=== PATIENT | female | born 1985 | race Caucasian/White ===

== ENCOUNTER → 2020-10-25 13:49 | Outpatient (CLI) | payer OTHER, SELFPAY ==
--- NOTE | ~2020-10-25 | MM_ITS ---
EXAMINATION: MM screening betty BI w krystin HISTORY: Screening TECHNIQUE: Craniocaudal and mediolateral oblique 3-D tomosynthesis images were obtained and synthetic 2-D images were generated. CAD analysis was submitted and interpreted. COMPARISON: No prior mammogram is available for comparison at this institution. BREAST PARENCHYMAL COMPOSITION: The breasts are heterogeneously dense, which may obscure small masses . FINDINGS: There is no evidence of suspicious mass, calcification, or architectural distortion to sugg est malignancy in either breast. There has been no suspicious interval change. IMPRESSION: 1. No mammographic evidence of malignancy. 2. Recommend routine screening mammography in one year. BI-RADS Category 1: Negative Reviewed, dictated and finalized at location A.
== END ==
PROVIDERS: Visit Provider Surgery Plastic and Reconstructive Surgery
DX: Z12.31 Encounter for screening mammogram for malignant neoplasm of breast (principal)
CPT/HCPCS: 77063; 77067

== ENCOUNTER 2021-01-11 16:10 | Emergency (ER) | payer OTHER, SELFPAY ==
[2021-01-11 16:19] VITALS: BP 165/94; PULSE 70; TEMP 37.2; O2SAT 99
[2021-01-11] MEDS: IBUPROFEN 600 MG TABLET PO (19:17)
[2021-01-11 19:19] VITALS: BP 180/85; PULSE 63; RESP 18; TEMP 37.2; O2SAT 97
--- NOTE | 2021-01-11 19:21 | ED.WOUNDLAC ---
HPI - Wound/Laceration General Chief Complaint: Wound/Laceration <Li Juarez PA-C - Last Filed: 01/11/21 19:37> Stated Complaint: hit by softball line drive <DAVI Sanchez Last Filed: 01/11/21 19:37> Time Seen by Provider: 01/11/21 18:52 <DAVI Sanchez Last Filed: 01/11/21 19:37> Source: patient <DAVI Sanchez Last Filed: 01/11/21 19:37> Mode of arrival: ambulatory <DAVI Sanchez Last Filed: 01/11/21 19:37> Limitations: no limitations <DAVI Sanchez Last Filed: 01/11/21 19:37> History of Present Illness HPI narrative: This is a 35 year old female that presents to the ER for a head injury sustained just prior to arrival. 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 Reports she was hit in the face with a line drive. Reports swelling and pain to the lower lip. Also reports injury to one of her teeth. Denies loss of consciousness, vision changes, vomiting, numbness, or weakness. <DAVI Sanchez Last Filed: 01/11/21 19:37> Related Data Allergies/Adverse Reactions: Allergies Allergy/AdvReac Type Severity Reaction Status Date / Time No Known Allergies Allergy Verified 01/11/21 16:38 <DAVI Sanchez Last Filed: 01/11/21 19:37> Review of Systems Review of Systems: CONSTITUTIONAL: Denies fever EYES: Denies visual changes GASTROINTESTINAL: Denies vomiting <DAVI Sanchez Last Filed: 01/11/21 19:37> All systems reviewed & are unremarkable except as noted in HPI and below <DAVI Sanchez Last Filed: 01/11/21 19:37> [facility] Past Medical History Medical History: Medical History (Updated 01/12/21 @ 00:00 by Background Daemon) No active medical problems <DAVI Sanchez Last Filed: 01/11/21 19:37> Surgical History Surgical History: Surgical History (Updated 01/08/20 @ 08:58 by Bhupendra Browne MD) History of delivery 2014 History of cosmetic plastic surgery 2016 Abdominoplast 2009- breast lift History of repair of ACL 2000 <Li Juarez PA-C - Last Filed: 01/11/21 19:37> Family History Family History: Family History Mother Hypertension <Li Juarez PA-C - Last Filed: 01/11/21 19:37> Social History Social History: Social History (Updated 01/08/20 @ 08:15 by Renae Villalobos [facility]) Smoking status: Never smoker Alcohol intake: current Substance use: never <Li Juarez PA-C - Last Filed: 01/11/21 19:37> Exam Narrative: GENERAL: Well-appearing, well-nourished, and in no acute distress. HEAD: Normocephalic. Bruising and swelling noted to the bottom lip. Superficial lacerations noted on the inside of the bottom lip. EYES: PERRLA and EOMI. ENT: Nares clear, no rhinorrhea or epistaxis. Mucous membranes moist. Oropharynx without tonsillar hypertrophy exudate or other lesions. Bilateral TMs pearly hagen non-bulging. Tooth number 25 has been pushed back, but is not loose NECK: Supple. No adenopathy or masses. CHEST: Clear to auscultation. No respiratory distress. No wheezes rales or rhonchi HEART: Regular rate and rhythm. No murmur heard. Normal peripheral pulses. EXTREMITIES: Normal range of motion. No edema. SKIN: Warm, dry, no rash. NEURO: No focal deficits. Alert and oriented x3. Cranial nerves II through XII grossly intact PSYCH: Normal mood and affect <Li Juarez PA-C - Last Filed: 01/11/21 19:37> Course Vital Signs Vital signs: Vital Signs Temperature 37.2 C 01/11/21 16:19 Pulse Rate 70 01/11/21 16:19 Blood Pressure 165/94 H 01/11/21 16:19 Pulse Oximetry 99 01/11/21 16:19 Temperature 37.2 C 01/11/21 19:19 Pulse Rate 63 01/11/21 19:19 Respiratory Rate 18 01/11/21 19:19 Blood Pressure 180/85 H 01/11/21 19:19 Pulse Oximetry 97 01/11/21 19:19 <Li Juarez PA-C - Last
--- NOTE | 2021-01-11 19:23 | PC.NURSE ---
Patient states she does not want the CT and request to speak with DAVID Jefferson. ERP notified.
== END 2021-01-11 19:37 | disposition home or self-care (01) ==
PROVIDERS: Emergency Provider Emergency Medicine
DX: S09.93XA Unspecified injury of face, initial encounter (principal); W21.07XA Struck by softball, initial encounter; Y93.64 Activity, baseball
CPT/HCPCS: 99283; A9270

== ENCOUNTER 2021-02-13 01:54 | Day surgery (SDC) | payer OTHER, SELFPAY ==
[2021-02-10 16:07] VITALS: BMI 27.6
--- NOTE | 2021-02-10 16:17 | PC.NURSE ---
Report to the Outpatient Waiting Room, entrance under the green pavilion located off [facility], at time 0600 on date 02/13/21. OR Time: 0730. - You and your visitor will be asked a series of questions to screen for COVID 19 for your protection. - A mask is required within the hospital. - Only one visitor is allowed at this time. Patient visitors will be guided where to wait when not with patient. Preoperative COVID Testing Requirements: No COVID Test needed if: (proof is required; if not received patient will have Rapid Test prior to entry) - Patient has received COVID Vaccine at least 14 days prior to procedure date or - Patient has positive COVID test result within last 90 days of surgery date. COVID Test needed if above criteria is not met If not COVID vaccinated a COVID test must be conducted within 72 hours of surgery and patient is asked to isolate self from time of testing until procedure. You will go to the [facility] for your COVID testing. The [facility] site is located at the corner of [address] [facility]. You will only be called if COVID results are positive and your surgeon may reschedule your elective surgery date. Patients may have clear liquids (water, carbonated beverages, clear teas, apple juice) until 3 hours prior to surgery with a maximum of 20 ounces. - No food from midnight until time of surgery - Infants may have breast milk until 4 hours before surgery, infant formula 6 hours prior to surgery. - Children will be allowed to drink immediately following surgery. If applicable, please bring a bottle or sippy cup to assist with drinking. Juice, water, soda, and popsicles are readily available. For infants on formula, please bring formula the day of surgery. Pacifiers are allowed. Take the following medications with a SIP of water the morning of surgery: N/A Medications to discontinue per physician: N/A Date to take last dose: N/A Please no make-up, nail estonian, hairspray, perfume, deodorant, or body powder the day of surgery. No jewelry (including any body piercings) or valuables the day of surgery, leave them at home. Please take a shower or bath the night before, or the morning of, surgery with an antibacterial soap. Wear comfortable, loose fitting clothing. Children are encouraged to wear pajamas. - Jewelry must be removed prior to entering the operating room. Rings and piercings that are not removed may be cut off. - The hospital will not accept responsibility for valuables. - Please leave all valuables, including medications, at home the day of surgery. If you are going home after surgery, a licensed driver license technician must drive you home. - NO public transportation without another adult. - We recommend that an adult stay with you for 24 hours following discharge. - We also recommend that you do not drive, make important decision, drink alcoholic beverages, or take any drugs that were not prescribed by your health care provider for at least 24 hours after your discharge time. For Pediatric surgeries, we recommend two adults accompany the child home (only one inside the building at this time). Follow any additional instructions given to you from your surgeon. Telephone instructions given to BRIONNA NUNN and asked if any additional questions and then verbalized understanding. Patient advised to call surgeon office or pre surgery nurse liaison [phone] if any additional questions.
[2021-02-13] VITALS (8 sets, daily range): BP systolic 139–162; BP diastolic 74–98; PULSE 53–75; RESP 10–20; TEMP 36.3–36.6; O2SAT 99–100
[2021-02-13 07:01] LABS: Urine Cotinine NEGATIVE
--- NOTE | 2021-02-13 07:02 | P.PNAN_ITS ---
Anes - Initial Pre Proc Eval Procedure: Operation Date: 02/13/21 07:30 Proposed Procedures p Bilateral Breast Reduction - Bhupendra Browne MD Date/Time: 02/13/21 07:02 Surgeon: Bhupendra Browne MD Pre Op Diagnosis: Macromastia Patient Data Age: 35 Gender: F Height: 1.57 m Weight: 68.4 kg Allergies Allergy/AdvReac Type Severity Reaction Status Date / Time No Known Allergies Allergy Verified 02/13/21 07:12 Home Medications Medication Instructions Recorded Confirmed Type docusate sodium 100 mg capsule 100 mg PO DAILY #14 cap 02/05/21 02/10/21 Rx ondansetron HCl 4 mg tablet 4 mg PO Q8H #21 tablet 02/05/21 02/10/21 Rx hydrocodone 5 mg-acetaminophen 325 1 tablet PO Q6H PRN #15 tablet 02/06/21 02/10/21 Rx mg tablet Laboratory Tests 02/13/21 06:44 Cotinine Negative Patient hx anesthesia problems: none Family hx anesthesia problems: none Results Review: All pre-operative results and documents have been reviewed as part of the pre-operative evaluation. [facility] Past Medical History Medical History No active medical problems Surgical History Surgical History History of delivery 2013 History of cosmetic plastic surgery 2016 Abdominoplast 2008- breast lift History of mastopexy History of repair of ACL 1999 Family History Family History Mother Hypertension Social History Social History Smoking status: Never smoker Alcohol intake: current Drinks per week: 4 Substance use: never Substance use type: does not use Living arrangements: with family Spiritual care concerns: No Anes - Eval Final PreProcedure Day of Procedure 02/13/21 07:02 Patient weight: overweight Heart: regular rate and rhythm Lungs: clear to auscultation Airway: Mallampati scale class 1 Neurological: alert and oriented Last oral intake: >/= 8 hours ASA classification: II Emergent: no Anesthetic plan: proceed Anesthesia type and monitoring: general LMA and standard monitoring Results Review: All pre-operative results and documents have been reviewed as part of the pre-operative evaluation. Informed Consent: The patient's anesthetic plan and its attendant risks and benefits were discussed with the patient/family/POA. Questions were solicited and answers provided to the satisfaction of the patient/family/POA.
--- NOTE | 2021-02-13 07:15 | P.OP_ITS ---
Procedure Note - Detailed Date of Procedure 02/13/21 Pre-op Diagnosis Macromastia Post-op Diagnosis same Procedure Performed Bilateral reduction mammaplasty Surgeon Bhupendra Browne MD Anesthesia general Findings Bilateral Superior pedicle Inverted T Tissue removed: Right - 721 grams Left - 872 grams Description of Procedure She is here today for bilateral breast reduction. Previously and again today the risks, benefits, alternatives were discussed in extensive detail. She understands her history of mastopexy significantly increases her risk of compilations including but not limited to nipple sensation change and nipple loss. I wanted her to be very realistic about the risks involved as well as expectations. We discussed aftercare and what to monitor for. She understands we can never guarantee final breast size and there will always be asymmetry. I was very upfront and honest about the risks of sensation change and even nipple loss (). Made sure answered all of her questions to her satisfaction today and consent was obtained. She was marked in the preoperative holding area with their verification. The patient was taken to the operating room placed supine on the operating table. Anesthesia was provided by anesthesiology. She was prepped and draped in a standard sterile fashion. A surgical time-out was taken. Stab incisions were made and I tumessed with a tumescent solution. I marked out the nipple-areolar complex at 42 mm. I then de-epithelialized the pedicle. The pedicle was well left well more than 2 cm in thickness. I then removed the inferior portion of the breast as well as the central keel to get shape based on preoperative planning. At this point copiously irrigated with saline solution and verified a strict hemostasis. I reapproximated the pillars using a 2-0 PDS. I tailor tacked the breast into place with geri. She was placed in a sitting position. I verified the nipple-areolar complex position based on preoperative markings, intraoperative measurements, and observation which were in full agreement. This nipple-areolar complex was marked at 42 mm in size. I then placed supine and de-epithelialized this. Nipple-areolar complex was inset with 3-0 Monocryl. I closed IMF deep with 1 st rattafix. I closed the vertical incision with 3-0 Monocryl in the IMF with 3-0 stratafix. Then everything was closed using a running subcuticular 4-0 Monocryl followed by Steri-Strips. A dressing was placed followed by surgical bra. Patient was awoke and taken to PACU without difficulty. All instrument sponge counts were correct at the end of the case. Estimated Blood Loss 40 Drains No Packing No Pathology yes (Bilateral breast tissue) Complications No immediate complications Condition stable Disposition PACU
[2021-02-13] MEDS: LACTATED RINGERS 1,000 ML 30 ML IV CONT ×2 (07:16→10:25)
--- NOTE | 2021-02-13 07:24 | WPDHPUPDATE1 ---
History and Physical Update Update Date/Time: 02/13/21 07:24 History and Physical has been reviewed, including an updated exam of the patient. There are NO changes in the patient's condition. Risks, benefits, and alternatives have been discussed and questions answered. Patient agrees to proceed with procedure.
[2021-02-13] MEDS: ceFAZolin 2 GM/D5W 50 ML 2 GM/50 ML BAG IVPB (07:29)
[2021-02-13] MEDS: TRANEXAMIC ACID 1,000MG/ISO100 1,000 MG/100 ML BAG 200 MG IVPB (07:43)
[2021-02-13] MEDS: LACTATED RINGERS IRRIG 1,000 ML, LIDOCAINE HCL 1% LOCAL INJ 50 ML, EPINEPHrine HCL INJ ... INFILTRATE (08:22)
--- NOTE | 2021-02-13 11:08 | SUR.PHASEI ---
Simple mask removed at 1105.
== END 2021-02-13 12:20 | disposition home or self-care (01) ==
PROVIDERS: Visit Provider Surgery Plastic and Reconstructive Surgery
PROC: 0HBV0ZZ Excision of Bilateral Breast, Open Approach (ICD-10-PCS; CPT 19318; principal; 2021-02-13 07:30)
DX: N62 Hypertrophy of breast (principal); N60.32 Fibrosclerosis of left breast; N60.31 Fibrosclerosis of right breast; N60.42 Mammary duct ectasia of left breast; N60.41 Mammary duct ectasia of right breast; N60.82 Other benign mammary dysplasias of left breast; L98.9 Disorder of the skin and subcutaneous tissue, unspecified; Z79.899 Other long term (current) drug therapy
CPT/HCPCS: 19318; 80307; 88305; J0171; J0690; J2250; J2270; J2405; J2704; J7120